=== PATIENT | female | born 1985 | race Caucasian/White ===

== ENCOUNTER → 2017-06-14 | Outpatient (CLI) | payer BC ==
[2017-06-14 09:26] LABS: ALBUMIN 3.6 g/dL (3.4-5.0); CALCIUM 8.4 mg/dL (8.5-10.1); CREATININE 0.7 mg/dL (0.6-1.0); POTASSIUM 4.1 mmol/L (3.5-5.1); TOTAL BILIRUBIN 0.3 mg/dL (0.2-1.0); TOTAL PROTEIN 7.3 g/dL (6.4-8.2)
== END | disposition home or self-care (01) ==
LOC: LAB 08:03
PROVIDERS: ATTEND Internal Medicine Cardiovascular Disease
DX: E78.00 Pure hypercholesterolemia, unspecified (principal); F17.200 Nicotine dependence, unspecified, uncomplicated
CPT/HCPCS: 36415; 80053; 80061

== ENCOUNTER → 2017-08-15 | Outpatient (CLI) | payer BC ==
[2017-08-15 11:58] LABS: ALBUMIN 3.6 g/dL (3.4-5.0); CALCIUM 8.6 mg/dL (8.5-10.1); CREATININE 0.7 mg/dL (0.6-1.0); POTASSIUM 4.2 mmol/L (3.5-5.1); TOTAL BILIRUBIN 0.2 mg/dL (0.2-1.0); TOTAL PROTEIN 7.3 g/dL (6.4-8.2)
== END | disposition home or self-care (01) ==
LOC: LAB 10:57
PROVIDERS: ATTEND Internal Medicine Cardiovascular Disease
DX: E78.00 Pure hypercholesterolemia, unspecified (principal); F17.210 Nicotine dependence, cigarettes, uncomplicated
CPT/HCPCS: 36415; 80053; 80061

== ENCOUNTER 2021-11-03 22:51 | Emergency (ER) | payer BC ==
[~2021-11-03] VITALS: Ht 154.9 cm; Wt 84.0 kg
[2021-11-03] MEDS ORDERED: ONDANSETRON PF 4 MG/2 ML VIAL. ONE (23:02)
--- NOTE | 2021-11-03 23:10 | PHYS DOC ---
Past History Past Medical History: Other Past Surgical History: Smoking: Less than 1pk/day Alcohol Use: Rarely Drug Use: None Adult General Chief Complaint Chief Complaint: FLANK PAIN HPI HPI Patient is a 36-year-old female who presents with right-sided flank pain associated with nausea and vomiting which started earlier in the day. Review of Systems Review of Systems Review of systems otherwise unremarkable except noted in HPI Current Medications Current Medications Current Medications Medications (Trade) Dose Ordered Sig/Hansel Start Time Stop Time Status Last Admin Dose Admin Ondansetron HCl (Zofran) 4 mg STK-MED ONCE 11/03/21 23:02 11/03/21 23:03 DC Allergies Allergies Allergies Coded Allergies Type Severity Reaction Last Updated Verified latex Allergy Unknown 09/21/13 Yes Physical Exam Physical Exam Constitutional: Well developed, well nourished, no acute distress, non-toxic appearance. [] HENT: Normocephalic, atraumatic, bilateral external ears normal, oropharynx moist, no oral exudates, nose normal. [] Eyes: conjunctiva normal, no discharge. [] Neck: Normal range of motion, no tenderness, supple, no stridor. [] Cardiovascular:Heart rate regular rhythm, no murmur [] Lungs & Thorax: Bilateral breath sounds clear to auscultation [] Abdomen: soft, no tenderness, no masses, no pulsatile masses. [] Skin: Warm, dry, no erythema, no rash. [] Back: no CVA tenderness. [] Extremities: No tenderness, no cyanosis, no clubbing, ROM intact, no edema. [] Neurologic: Alert and oriented X 3, no focal deficits noted. [] Psychologic: Affect normal, judgement normal, mood normal. [] Current Patient Data Vital Signs Vital Signs Date Time Temp Pulse Resp B/P (MAP) Pulse Ox O2 Delivery O2 Flow Rate FiO2 11/03/21 22:51 98.6 107 18 149/97 (114) 98 Room Air EKG EKG [] Radiology/Procedures Radiology/Procedures [] Heart Score C/O Chest Pain: No Risk Factors: Risk Factors: DM, Current or recent (<one month) smoker, HTN, HLP, family history of CAD, obesity. Risk Scores: Risk Factors: DM, Current or recent (<one month) smoker, HTN, HLP, family history of CAD, obesity. Course & Med Decision Making Course & Med Decision Making Patient 36-year-old female presents with right-sided flank pain associate with nausea vomiting Vital signs notable for tachycardia and hypertension. Physical exam noted above. Given nausea and pain medicine Urine with some hematuria. CT with a 7 mm proximal stone. On reassessment patient stated pain and nausea completely resolved. Discussed all findings with patient and family. Discussed admission tonight to a facility with a urologist or watchful waiting with pain, and nausea management at home. Patient stated she would like to try over the next week or so with watchful waiting. Advised to call her primary care physician this morning to update on ED visit and get a consultation for urologist. Given work note to allow this. Sent home with pain, nausea medicine and Flomax. Gave return precautions to the ED. Patient grateful, verbalized understanding and agreed with plan of discharge. Dragon Disclaimer Dragon Disclaimer This electronic medical record was generated, in whole or in part, using a voice recognition dictation system. Departure Departure: Impression: Primary Impression: Renal lithiasis Disposition: HOME / SELF CARE / HOMELESS Condition: STABLE Referrals: EDER BALBUENA DO (PCP) Patient Instructions: Diet for Kidney Stones, Kidney Stones Additional Instructions: Thank you for coming into the emergency department tonight and allowing us to take care of you. Please read the attached information carefully to go over things we discussed. You can continue Tylenol, ibuprofen and Benadryl as needed. Please take your prescription pain medicine as prescribed and as needed. Please do not exceed 3000 mg of Tylenol daily. Please use your nausea medicine as prescribed and as needed. Please follow-up with your primary care physician in the morning update on your ED visit and set up a follow-up as soon as you can and discuss need for urology consult. Please come back to the emergency department immediately with any of the new or concerning symptoms as we discussed or any concerns at all. Scripts Tamsulosin Hcl (FLOMAX) 0.4 Mg Cap.er.24h 1 CAP PO DAILY for renal stone for 7 Days, #7 CAP 11 Refills Prov: TIFFANIE LOZA MD 11/04/21 Ondansetron (ONDANSETRON ODT) 4 Mg Tab.rapdis 1 TAB PO PRN Q6-8HRS for N/V for 7 Days, #28 TAB Prov: TIFFANIE LOZA MD 11/04/21 Hydrocodone Bit/Acetaminophen (HYDROCODONE-APAP 5-325 ) 1 Each Tablet 1 TAB PO PRN Q6HRS PRN for flank pain for 7 Days, #28 TAB 0 Refills Prov: TIFFANIE LOZA MD 11/04/21 TIFFANIE LOZA MD Nov 03, 2021 23:10
[2021-11-03] MEDS ORDERED: ONDANSETRON ODT 4 MG TAB.RAPDIS PO ONE (23:15)
[2021-11-03 23:29] LABS: CLARITY,URINE CLEAR; COLOR,URINE YELLOW; GLUCOSE,URINE NEG (NEG); NITRITE,URINE NEG (NEG); UROBILINOGEN,URINE 0.2 mg/dL (0.2 mg/dL)
[2021-11-03 23:30] LABS: BACTERIA,URINE MOD /HPF (0-FEW); SQUAMOUS EPITHELIAL CELL,UR MOD /LPF
[2021-11-03] MEDS ORDERED: IV RINGERS SOLUTION,LACTATED 1,000 ML IV ONE (23:30)
[2021-11-03] MEDS ORDERED: ONDANSETRON PF 4 MG/2 ML VIAL. IVP ONE (23:30)
--- NOTE | 2021-11-03 23:35 | RAD ---
PQRS Compliance Statement: One or more of the following individualized dose reduction techniques were utilized for this examinat ion: 1. Automated exposure control 2. Adjustment of the mA and/or kV according to patient size 3. Use of iterative reconstruction technique CT abdomen/pelvis without contrast 11/03/2021 11:08 PM INDICATION: Severe left flank pain, nausea COMPARISON: None available TECHNIQUE: Multiple axial CT images of the abdomen and pelvis were obtained without intravenous contr ast. Coronal and sagittal reformats are provided. FINDINGS: Subsegmental atelectasis involving the inferior lingula. Heart size within normal limits. Evaluation of solid abdominal viscera is limited by lack of intravenous contrast. 5 mm hypoattenuating lesion wi thin lateral segment left hepatic lobe (series 2, image 24) is indeterminate, however favor benign et iology such as a simple cyst or hemangioma in the absence of underlying malignancy. Spleen, adrenal g lands, pancreas and gallbladder are normal in appearance. There is a 5 mm nonobstructing calculus in the mid to superior pole left kidney. There is a 7 mm calculus within the left renal pelvis resulting in mild left hydronephrosis. The abdominal aorta is normal in course and caliber. There are no patho logically enlarged lymph nodes in the abdomen and pelvis. There is no abdominal free fluid. There is no free intraperitoneal air. Small and large bowel are normal in caliber. There is no evidence for ladi wel obstruction. There are no pericolonic inflammatory changes. A normal, nondilated appendix is visu alized without adjacent inflammatory changes. Uterus and adnexa are normal by CT. Urinary bladder is within normal limits given degree of distention. Few perirectal lymph nodes are nonenlarged and could be reactive. No suspicious osseous abnormality. IMPRESSION: 1. 7 mm calculus within the left renal pelvis resulting in mild left hydronephrosis. 2. 5 mm nonobstructing calculus identified in the mid to superior pole left kidney. 3. 5 mm hypoattenuating lesion within lateral segment left hepatic lobe (series 2, image 24) is indet erminate, however favor benign etiology such as a simple cyst or hemangioma in the absence of underly ing malignancy Electronically signed by: Keya Singh MD (11/03/2021 11:33 PM) [facility]
[2021-11-03] MEDS ORDERED: KETOROLAC 15 MG/ML VIAL. IVP ONE (23:45)
[2021-11-04] MEDS ORDERED: ONDA4TAB12 PO (00:12)
[2021-11-04] MEDS ORDERED: HYDR-2155 PO (00:12)
[2021-11-04] MEDS ORDERED: TAMS0.4C97 PO (00:12)
[2021-11-04 00:16] VITALS: BP 137/78
[2021-11-04] MEDS ORDERED: MORPHINE SULFATE 4 MG/ML DISP.SYRIN. IV ONE (00:30)
[2021-11-04] MEDS ORDERED: TAMSULOSIN 0.4 MG CAP.ER.24H. PO ONE (00:30)
[2021-11-04] MEDS ORDERED: METOCLOPRAMIDE HCL 10 MG/2 ML VIAL. IVP ONE (00:30)
== END 2021-11-04 00:34 | disposition home or self-care (01) ==
LOC: ER 22:51
DX: N13.2 Hydronephrosis with renal and ureteral calculous obstruction (principal); F17.200 Nicotine dependence, unspecified, uncomplicated; Z98.890 Other specified postprocedural states; Z91.040 Latex allergy status
CPT/HCPCS: 74176; 81001; 81025; 87086; 96361; 96374; 96375; 99284; J1885; J2270; J2405; J2765; J7120